=== PATIENT | female | born 1960 | race Two or more races ===

== ENCOUNTER 2016-08-12 22:03 | Emergency (ER) | payer MEDICARE, MEDICAID ==
[~2016-08-12] VITALS: Ht 160 cm; Wt 106.3 kg
[~2016-08-12 22:03] MED LIST: ALBUAER3 IN; CYCL10TA3 PO; ERGO1CAP6 PO; GABA300C PO; LORA-154 PO; METF-312 PO; TERB250T66 PO; TRIA0.5O2 TOP
[2016-08-12 22:26] VITALS: BP 154/83
[2016-08-12 22:37] LABS: Urine RBC None Seen /hpf (0 - 4)
[2016-08-13 00:37] LABS: Urine Bilirubin Negative (Negative); Urine Blood Negative /uL (Negative); Urine Color Yellow (Yellow); Urine Glucose Normal (Normal); Urine Ketone Negative (Negative); Urine Nitrite Negative (Negative); Urine Squamous Epithelial Cell FEW /hpf (<5); Urine Urobilinogen Normal (Negative); Urine pH 5.5 (5.0-8.0)
== END 2016-08-13 01:05 | disposition home or self-care (01) ==
LOC: ER 22:07
DX: N76.4 Abscess of vulva (principal); M19.90 Unspecified osteoarthritis, unspecified site; E11.9 Type 2 diabetes mellitus without complications; F17.210 Nicotine dependence, cigarettes, uncomplicated
CPT/HCPCS: 81001

== ENCOUNTER → 2020-02-20 | Day surgery (SDC) | payer OTHER, MEDICAID ==
[~2020-02-20] VITALS: Ht 160 cm; Wt 100.7 kg
[~2020-02-20] MED LIST changes: +ACLI1AER2 IN; +ALBUTEROL SULF 2.5 MG/0.5ML(0.5%) NEB SOLN NEB ONE; +ALBUTEROL SULF 2.5 MG/0.5ML(0.5%) NEB SOLN ONE; +ATOR20TA50 PO; +BECL40AE11 IN; +BUPIVACAINE 0.25% INJ 50ML VIAL ONE; +CHOL100055 PO; +CONJ ESTROGENS 0.625MG/GM VAG CRM 30GM PV ONE; -CYCL10TA3 PO; +DIPH25CA46 PO; -ERGO1CAP6 PO; +EXEN1INJ SC; +FAMO-12 PO; +FENO145T27 PO; +FLUT110A INH; +HYDR-531 PO; +HYDR200T36 PO; +IBUP800T24 PO; +INSLANTI SC; +LIDOCAINE W/ EPINEPHRINE 1 % INJ 30ML ONE; -LORA-154 PO; +MECL25TA18 PO; -METF-312 PO; +METF-372 PO; +MONT10TA34 PO; +MULT-927 PO; +NITR0.4S29 SL; +OMEP20TA PO; +ONDA-144 PO; +OXYB5TAB61 PO; +SIMV-13 PO; -TERB250T66 PO; -TRIA0.5O2 TOP; +TRIA75TA55 PO; +ceFAZolin 1GM VL ONE; +ceFAZolin 1GM/50ML 50 ML IV ONE
== END | disposition home or self-care (01) ==
LOC: SUR 07:09
PROVIDERS: ATTEND Obstetrics & Gynecology
DX: N81.10 Cystocele, unspecified (principal); J44.9 Chronic obstructive pulmonary disease, unspecified; E66.9 Obesity, unspecified; E11.9 Type 2 diabetes mellitus without complications; F32.9 Major depressive disorder, single episode, unspecified; F41.9 Anxiety disorder, unspecified; Z68.39 Body mass index [BMI] 39.0-39.9, adult; Z87.891 Personal history of nicotine dependence; Z20.828 Contact with and (suspected) exposure to other viral communicable diseases; Z98.890 Other specified postprocedural states; Z53.8 Procedure and treatment not carried out for other reasons
CPT/HCPCS: 71045; 82962; 94640; J0690; U0003; J3490

== ENCOUNTER 2020-04-16 16:05 | Emergency (ER) | payer OTHER, MEDICAID ==
[~2020-04-16] VITALS: Ht 160 cm; Wt 95.3 kg
[~2020-04-16 16:05] MED LIST changes: -ALBUTEROL SULF 2.5 MG/0.5ML(0.5%) NEB SOLN NEB ONE; -ALBUTEROL SULF 2.5 MG/0.5ML(0.5%) NEB SOLN ONE; -BUPIVACAINE 0.25% INJ 50ML VIAL ONE; -CONJ ESTROGENS 0.625MG/GM VAG CRM 30GM PV ONE; -LIDOCAINE W/ EPINEPHRINE 1 % INJ 30ML ONE; -ceFAZolin 1GM VL ONE; -ceFAZolin 1GM/50ML 50 ML IV ONE
[2020-04-16 22:03] LABS: Basophils # (auto) 0 10 ^3/uL (0-0.2); Basophils % (auto) 0.4 % (0.0-2.0); Eosinophils # (auto) 0 10 ^3/uL (0-0.8); Hematocrit 43.3 % (36.0-46.0); Hemoglobin 14.9 g/dL (12.2-16.2); Lymphocytes # (auto) 0.9 10 ^3/uL (0.4-5.4); Mean Corpuscular Hemoglobin 32.4 pg (28.0-32.0); Mean Corpuscular Hgb Conc. 34.4 g/dL (32.0-36.0); Mean Corpuscular Volume 94.3 fL (80.0-100.0); Monocytes # (auto) 0.4 10 ^3/uL (0-1.3); Monocytes % (auto) 11.7 % (0.0-12.0); Neutrophils # (auto) 2.3 10 ^3/uL (1.6-8.6); Neutrophils % (auto) 63.9 % (37.0-80.0); Platelet Count (auto) 120 10^3/uL (140-450); Red Blood Cells 4.59 10^6/uL (4.0-5.20); Red Cell Distribution Width 13.3 % (11.8-14.3); White Blood Cell 3.5 10^3/uL (4.4-10.8)
[2020-04-16 22:20] LABS: Albumin 3.3 g/dL (3.4-5.0); Anion Gap 8 (5-15); Blood Urea Nitrogen 10 mg/dL (7-18); Calcium 8.6 mg/dL (8.5-10.1); Carbon Dioxide 26 mmol/L (21-32); Chloride 100 mmol/L (98-107); Glucose 110 mg/dL (74-106); Magnesium 2.4 mg/dL (1.6-2.6); Potassium 3.9 mmol/L (3.5-5.1); Sodium 134 mmol/L (136-145)
[2020-04-16 22:26] LABS: Alanine Aminotransferase 55 U/L (13-56); Alkaline Phosphatase 98 U/L (45-117); Aspartate Aminotransferase 78 U/L (15-37); BUN/Creatinine Ratio 14.9; Bilirubin, Total 0.4 mg/dL (0.2-1.0); GFR African American 115 mL/min; GFR Non-African American 95 mL/min; Total Protein 8.7 g/dL (6.4-8.2)
[2020-04-17 01:53] LABS: Urine Amorphous Crystal FEW /hpf (None Seen); Urine Bacteria FEW /hpf (None Seen); Urine Blood 2+ /uL (Negative); Urine Budding Yeast OCCASIONAL /hpf (None Seen); Urine Hyaline Cast FEW /lpf (0 - 2); Urine Mucus FEW (None Seen); Urine Specific Gravity 1.024 (1.001-1.035); Urine WBC 28 /hpf (0 - 5)
[2020-04-17 02:20] VITALS: BP 100/63
== END 2020-04-17 05:25 | disposition home or self-care (01) ==
LOC: ER 16:05 → EDBD 16:05 → ER 04-17 05:25
DX: U07.1 COVID-19 (principal); N39.0 Urinary tract infection, site not specified; J20.8 Acute bronchitis due to other specified organisms; E11.9 Type 2 diabetes mellitus without complications; F17.210 Nicotine dependence, cigarettes, uncomplicated
CPT/HCPCS: 36415; 71045; 74176; 80053; 81001; 83605; 83735; 83880; 84484; 85025; 86850; 86900; 86901; 87040; 87086; 87088; 87186; 93005

== ENCOUNTER 2021-11-17 03:16 | Emergency (ER) | payer OTHER, MEDICAID ==
[~2021-11-17] VITALS: Ht 160 cm; Wt 99.0 kg
[~2021-11-17 03:16] MED LIST changes: +DIPH-599 PO; -DIPH25CA46 PO; -IBUP800T24 PO; +IBUP800T27 PO; +MONT-8 PO; -MONT10TA34 PO
[2021-11-17 07:38] LABS: Basophils # (auto) 0 10 ^3/uL (0-0.2); Basophils % (auto) 0.5 % (0.0-2.0); Eosinophils # (auto) 0.1 10 ^3/uL (0-0.8); Eosinophils % (auto) 0.6 % (0.0-7.0); Hematocrit 39.6 % (36.0-46.0); Lymphocytes # (auto) 2.3 10 ^3/uL (0.4-5.4); Lymphocytes % (auto) 23.9 % (10.0-50.0); Mean Corpuscular Hemoglobin 31.2 pg (28.0-32.0); Mean Corpuscular Hgb Conc. 32.9 g/dL (32.0-36.0); Mean Corpuscular Volume 94.9 fL (80.0-100.0); Monocytes # (auto) 0.5 10 ^3/uL (0-1.3); Monocytes % (auto) 5.8 % (0.0-12.0); Neutrophils # (auto) 6.6 10 ^3/uL (1.6-8.6); Neutrophils % (auto) 69.2 % (37.0-80.0); Red Blood Cells 4.17 10^6/uL (4.0-5.20); Red Cell Distribution Width 13.9 % (11.8-14.3); White Blood Cell 9.5 10^3/uL (4.4-10.8)
[2021-11-17 07:49] LABS: Albumin 3.3 g/dL (3.4-5.0); Calcium 8.6 mg/dL (8.5-10.1); Magnesium 2.2 mg/dL (1.6-2.6)
[2021-11-17 07:54] LABS: BUN/Creatinine Ratio 13.2; Bilirubin, Total 0.5 mg/dL (0.2-1.0); Total Protein 7.7 g/dL (6.4-8.2)
[2021-11-17] MEDS ORDERED: SODIUM CHLORIDE 0.9% 1,000 ML IV ONE (08:15)
[2021-11-17 15:41] LABS: Urine Bacteria FEW /hpf (None Seen); Urine Blood Negative /uL (Negative); Urine Specific Gravity 1.008 (1.001-1.035); Urine WBC 1 /hpf (0 - 5)
[2021-11-17] MEDS ORDERED: FLEET ENEMA(ADULT) 135 ML PR ONE (16:45)
[2021-11-17] MEDS ORDERED: SENN1TAB88 PO (17:35)
[2021-11-17] MEDS ORDERED: OMEP-263 PO (17:35)
[2021-11-17] MEDS ORDERED: METO-281 PO (17:35)
[2021-11-17 18:00] VITALS: BP 109/64
== END 2021-11-17 18:32 | disposition home or self-care (01) ==
LOC: EDBD 03:16 → ER 03:16
DX: K46.9 Unspecified abdominal hernia without obstruction or gangrene (principal); K80.20 Calculus of gallbladder without cholecystitis without obstruction; E66.01 Morbid (severe) obesity due to excess calories; K42.9 Umbilical hernia without obstruction or gangrene; K57.90 Diverticulosis of intestine, part unspecified, without perforation or abscess without bleeding; J44.9 Chronic obstructive pulmonary disease, unspecified; F17.210 Nicotine dependence, cigarettes, uncomplicated; Z68.38 Body mass index [BMI] 38.0-38.9, adult; E11.9 Type 2 diabetes mellitus without complications; K21.9 Gastro-esophageal reflux disease without esophagitis
CPT/HCPCS: 36415; 71045; 74176; 80053; 81001; 82962; 83690; 83735; 83880; 84443; 84484; 85025; 85379; 93005; 96360; 96361; 99284; J7030

== ENCOUNTER 2024-03-07 07:08 | Day surgery (SDC) | payer OTHER, MEDICAID ==
[~2024-03-07] VITALS: Ht 160 cm; Wt 84.4 kg
[2024-03-07] VITALS (8 sets, daily range): BP systolic 98–112; BP diastolic 56–70; PULSE 68–84; RESP 12–16; O2SAT 98–100
[~2024-03-07 07:08] MED LIST changes: -ACLI1AER2 IN; +ALB5IS NEB; +ASPI325T6 PO; -BECL40AE11 IN; +BUDE1AER4 IN; -CHOL100055 PO; -DIPH-599 PO; -EXEN1INJ SC; -FAMO-12 PO; -FENO145T27 PO; -FLUT110A INH; -HYDR200T36 PO; +IBUP-1456 PO; -IBUP800T27 PO; -INSLANTI SC; +KEP500T PO; +MECL-90 PO; -MECL25TA18 PO; -METF-372 PO; -NITR0.4S29 SL; +OMEP-448 PO; -OMEP20TA PO; +OXYB5TAB14 PO; -OXYB5TAB61 PO; +RIVA10TA PO; +SEMA2INJ3 SC; -SIMV-13 PO; -TRIA75TA55 PO
[2024-03-07] MEDS ORDERED: LEVO500T91 PO (07:28)
[2024-03-07] MEDS ORDERED: RIVA20TA PO (07:28)
[2024-03-07] MEDS ORDERED: IODIXANOL 320MG/ML 100ML BTL IV ONE (08:08)
[2024-03-07] MEDS ORDERED: ANGIOMAX 250 MG VIAL IV ONE (08:30)
[2024-03-07] MEDS ORDERED: VERAPAMIL 2.5MG/ML INJ 2ML VIAL IV ONE (08:30)
[2024-03-07] MEDS ORDERED: fentaNYL CITRATE 100 MCG/2 ML VL ONE (08:30)
[2024-03-07] MEDS ORDERED: MIDAZOLAM HCL 2MG/2ML 2ml VIAL (1mg/ml) ONE (08:30)
[2024-03-07] MEDS ORDERED: HEPARIN SODIUM (PORCINE) 5000 UNITS/ML 1ML VIAL ONE (08:30)
[2024-03-07] MEDS ORDERED: SODIUM CHL 0.9% 0 ML ONE (08:31)
[2024-03-07] MEDS ORDERED: LIDOCAINE 2%HCL (LOCAL ANESTH.) INJ 20ML MDV ONE (08:31)
--- NOTE | 2024-03-07 09:31 | DVHOP2 ---
Operative Report Operative Report CARDIAC ELECTROTYPE MOLDER PROCEDURE REPORT [place], [place] Date of Service: 03/07/24 [place] Worker: Sherry Barajas MD PROCEDURES PERFORMED: Coronary angiogram, left heart catheterization, conscious sedation administration and supervision, less than 15 minutes; fluoroscopy use and interpretation. PREOPERATIVE DIAGNOSES: abnormal stress mpi , ccs class III angina POSTOP DIAGNOSIS: mild cad DESCRIPTION OF PROCEDURE: The patient or appropriate family signed informed consent understanding the risks, benefits and alternatives of the procedure, they wished to proceed. The patient was brought to the cardiac oven laborer in n.p.o. state. The patient was prepped in a sterile fashion. Sedation was used per cardiac cath protocol. I administered 2 mL of 2% lidocaine to the right wrist. With an antegrade front wall puncture. I cannulated the right radial artery and placed a 6-[place] Glidesheath slender. Next, an intra-arterial spasmolytic was administered. Next, a - 5 [place] Trimble catheter and were used for coronary angiogram and LVEDP measurement and pressure pullback. At the completion of procedure, all guides and wires were removed, and there were no immediate complications. FINDINGS: RCA: Moderate vessel off the right sinus of Valsalva, there is no severe flow limiting stenosis. it is dominant with small PDA. diffuse small vessel distal plaque LEFT MAIN: Moderate size left main, it bifurcates into LAD and circumflex. no s evere stenosis CIRCUMFLEX: Moderate caliber vessel coming off the left main with no flow limiting stenosis. LAD: LAD is a moderate caliber vessel coming of the left main. 30% mid lad stenosis. LVEDP of 4 mmhg, CONCLUSIONS: 1. mild CAD PLAN: Aggressive risk factor modification and medical management for the patient. SHERRY BARAJAS MD Mar 07, 2024 09:31
== END 2024-03-07 11:30 | disposition home or self-care (01) ==
LOC: CATH 07:08
PROVIDERS: ATTEND Internal Medicine
DX: R94.39 Abnormal result of other cardiovascular function study (principal); I25.119 Atherosclerotic heart disease of native coronary artery with unspecified angina pectoris; F41.9 Anxiety disorder, unspecified; F32.A Depression, unspecified; J44.9 Chronic obstructive pulmonary disease, unspecified; J45.909 Unspecified asthma, uncomplicated; Z88.8 Allergy status to other drugs, medicaments and biological substances; Z91.09 Other allergy status, other than to drugs and biological substances; Z79.82 Long term (current) use of aspirin; Z82.49 Family history of ischemic heart disease and other diseases of the circulatory system; Z83.3 Family history of diabetes mellitus; Z87.891 Personal history of nicotine dependence
CPT/HCPCS: 93458; C1769; C1894; J1644; J2250; J3010; J7030; Q9967; 99152